=== PATIENT | female | born 1980 | race Caucasian/White ===

== ENCOUNTER 2021-06-21 18:26 | Emergency (ER) | payer BC ==
[2021-06-21] MEDS ORDERED: Bacitracin Oint 1 GM U/D Packet TOP ONE (19:35)
[2021-06-21] MEDS ORDERED: Haloperidol Lactate 5 MG/ML SDV IVPUSH ONE (20:51)
[2021-06-21] MEDS ORDERED: LORazepam 2 MG/ML SDV IVPUSH ONE (20:51)
[2021-06-21] MEDS ORDERED: Nicotine 21 MG/24 Hr Patch TRDERM ONE (20:55)
[2021-06-22] MEDS ORDERED: LORazepam 0.5 MG Tab PO ONE (08:53)
[2021-06-22] MEDS ORDERED: Ibuprofen 600 MG Tab PO ONE (09:16)
== END 2021-06-22 10:43 | disposition home or self-care (01) ==
LOC: JP.ED 18:26
DX: S51.812A Laceration without foreign body of left forearm, initial encounter (principal); F10.99 Alcohol use, unspecified with unspecified alcohol-induced disorder; F41.9 Anxiety disorder, unspecified; F32.A Depression, unspecified; F17.210 Nicotine dependence, cigarettes, uncomplicated; X78.9XXA Intentional self-harm by unspecified sharp object, initial encounter; Y90.8 Blood alcohol level of 240 mg/100 ml or more
CPT/HCPCS: 12002; 36415; 80053; 80307; 85025; 96374; 96375; 99282; 99283-25; A9270-GY; J1630; J2060

== ENCOUNTER 2022-12-04 06:52 | Day surgery (SDC) | payer BC ==
[~2022-12-04 06:52] MED LIST: Midazolam 1 MG/ML 2 ML SDV ONE; Propofol 200 MG/20 ML SDV ONE; fentaNYL 100 MCG/2 ML SDV ONE
[2022-12-04] MEDS: Lactated Ringers 1,000 ML IV SCH (07:52)
[2022-12-04 09:16] VITALS: BP 122/92; PULSE 68
== END 2022-12-04 10:00 | disposition home or self-care (01) ==
LOC: JP.SDS 06:52
PROVIDERS: ATTEND Student in an Organized Health Care Education/Training Program
DX: K29.50 Unspecified chronic gastritis without bleeding (principal); K20.90 Esophagitis, unspecified without bleeding; F41.9 Anxiety disorder, unspecified; F32.A Depression, unspecified
CPT/HCPCS: 88305; J2250; J2704; J3010; J7120